=== PATIENT | female | born 1990 | race Caucasian/White ===

== ENCOUNTER 2017-02-14 18:10 | Emergency (ER) | payer MEDICAID ==
[~2017-02-14] VITALS: Ht 162.6 cm; Wt 92.0 kg
[2017-02-14] MEDS ORDERED: IBUPROFEN 600MG TABLET PO ONE (20:30)
[2017-02-14 20:50] VITALS: BP 134/70
== END 2017-02-14 21:36 | disposition home or self-care (01) ==
LOC: ER 18:12
DX: S29.011A Strain of muscle and tendon of front wall of thorax, initial encounter (principal); V43.62XA Car passenger injured in collision with other type car in traffic accident, initial encounter; Y93.89 Activity, other specified; Y92.410 Unspecified street and highway as the place of occurrence of the external cause; Y99.8 Other external cause status
CPT/HCPCS: 81025; 99283

== ENCOUNTER 2017-09-15 22:56 | Emergency (ER) | payer MEDICAID ==
[~2017-09-15] VITALS: Ht 162.6 cm; Wt 87.8 kg
[2017-09-16] MEDS ORDERED: ACETAMINOPHEN 500MG TABLET PO ONE (01:15)
[2017-09-16 02:30] VITALS: BP 111/64
== END 2017-09-16 03:25 | disposition home or self-care (01) ==
LOC: ER 22:56
DX: S40.012A Contusion of left shoulder, initial encounter (principal); S20.02XA Contusion of left breast, initial encounter; V43.62XA Car passenger injured in collision with other type car in traffic accident, initial encounter; Y93.89 Activity, other specified; Y92.488 Other paved roadways as the place of occurrence of the external cause
CPT/HCPCS: 71045; 81025; 99283

== ENCOUNTER 2017-10-31 09:44 | Emergency (ER) | payer MEDICAID ==
[~2017-10-31] VITALS: Ht 162.6 cm; Wt 87.0 kg
[2017-10-31] MEDS ORDERED: SODIUM CHLORIDE 0.9% 1,000 ML IV ONE (11:16)
[2017-10-31] MEDS ORDERED: ACETAMINOPHEN 325MG TABLET PO ONE (13:00)
[2017-10-31 13:03] LABS: BASOPHILS % 0.5 % (0.0-2.0); EOSINOPHILS % 1.8 % (0.0-5.0); HEMATOCRIT. 37.9 % (36.0-48.0); HEMOGLOBIN. 12.5 g/dL (12.0-16.0); LYMPHOCYTES % 22.5 % (20.0-50.0); MEAN CORPUSCULAR HEMOGLOBIN 26.6 pg (28.0-32.0); MEAN CORPUSCULAR VOLUME 80.5 fL (81.0-99.0); MEAN PLATELET VOLUME 9.7 fl (7.4-10.4); MONOCYTES % 7.7 % (2.0-8.0); NEUTROPHILS % 67.5 % (40.0-76.0); PLATELET 216 x1000/uL (130-400); RED BLOOD CELL COUNT 4.71 mill/uL (4.2-5.4); RED CELL DISTRIBUTION WIDTH 16.2 % (11.6-14.6)
[2017-10-31 13:08] LABS: CLARITY URINE CLOUDY (CLEAR); COLOR URINE YELLOW (YELLOW); KETONES URINE NEGATIVE (NEGATIVE); LEUKOCYTE ESTERASE URINE NEGATIVE (NEGATIVE); NITRITE URINE NEGATIVE (NEGATIVE); OCCULT BLOOD URINE TRACE (NEGATIVE); PROTEIN URINE NEGATIVE (NEGATIVE); UROBILINOGEN URINE 0.2 E.U./dL (0.2-1.0)
[2017-10-31 13:09] LABS: CHLORIDE 105 mEq/L (98-107)
[2017-10-31] MEDS ORDERED: ONDANSETRON HCL 4MG/2ML INJ IV ONE (13:15)
[2017-10-31 13:31] LABS: *AMPHETAMINES SCREEN URINE NEGATIVE (NEGATIVE); *BARBITURATES SCREEN URINE NEGATIVE (NEGATIVE); *COCAINE SCREEN URINE NEGATIVE (NEGATIVE)
[2017-10-31 13:32] LABS: *BENZODIAZEPINES SCREEN URINE NEGATIVE (NEGATIVE); METHADONE URINE SCREEN NEGATIVE (NEGATIVE); OPIATES URINE SCREEN NEGATIVE (NEGATIVE); PHENCYCLIDINE URINE SCREEN NEGATIVE (NEGATIVE)
[2017-10-31 13:33] LABS: CANNABINOID URINE SCREEN NEGATIVE (NEGATIVE)
[2017-10-31 13:45] LABS: B-HCG QUANTITATIVE 92677 mIU/mL (<3)
[2017-10-31] MEDS ORDERED: CEFAZOLIN 1000MG PREMIX 50 ML IV ONE (13:45)
[2017-10-31 15:21] VITALS: BP 105/61
== END 2017-10-31 15:23 | disposition home or self-care (01) ==
LOC: ER 09:44
DX: O20.0 Threatened abortion (principal); O23.41 Unspecified infection of urinary tract in pregnancy, first trimester; O21.9 Vomiting of pregnancy, unspecified; O26.891 Other specified pregnancy related conditions, first trimester; Z3A.09 9 weeks gestation of pregnancy; M54.5 Low back pain; E16.2 Hypoglycemia, unspecified; Z98.890 Other specified postprocedural states
CPT/HCPCS: 36415; 76801; 76817; 80048; 80305; 81003; 81025; 84702; 85025; 86850; 86900; 86901; 96361; 96365; 96375; 99285; J0690; J2405; J7030

== ENCOUNTER 2018-04-28 08:51 | Observation (INO) | payer MEDICAID ==
[~2018-04-28] VITALS: Ht 162.6 cm; Wt 104.3 kg
[2018-04-28] MEDS ORDERED: PNV1TABL50 PO (09:54)
[2018-04-28] MEDS ORDERED: MVI, ADULT NO.1 10 ML in LACTATED RINGERS 1,000 ML IV NR ×2 (10:15)
[2018-04-28 11:00] LABS: BASOPHILS % 0.2 % (0.0-2.0); EOSINOPHILS % 0.5 % (0.0-5.0); HEMATOCRIT. 34.1 % (36.0-48.0); HEMOGLOBIN. 11.4 g/dL (12.0-16.0); LYMPHOCYTES % 14.6 % (20.0-50.0); MEAN CORPUSCULAR HEMOGLOBIN 27.5 pg (28.0-32.0); MEAN CORPUSCULAR VOLUME 82.3 fL (81.0-99.0); MONOCYTES % 4.7 % (2.0-8.0); PLATELET 176 x1000/uL (130-400); RED BLOOD CELL COUNT 4.14 mill/uL (4.2-5.4); RED CELL DISTRIBUTION WIDTH 15.5 % (11.6-14.6)
[2018-04-28 13:14] LABS: CHLORIDE 109 mEq/L (98-107)
== END 2018-04-28 14:00 | disposition home or self-care (01) ==
LOC: 8EST 08:51 → 8EST NSY 09:49 → OB TRIAGE 10:05
PROVIDERS: ADMIT Obstetrics & Gynecology; ATTEND Obstetrics & Gynecology
DX: O26.893 Other specified pregnancy related conditions, third trimester (principal); R42 Dizziness and giddiness; Z3A.34 34 weeks gestation of pregnancy
CPT/HCPCS: 36415; 80053; 85025; 96365; 96366; G0378; J3490; J7120; 96361

== ENCOUNTER 2018-10-05 05:12 | Emergency (ER) | payer MEDICAID ==
[~2018-10-05] VITALS: Ht 162.6 cm; Wt 97.0 kg
[~2018-10-05 05:12] MED LIST: PNV1TABL50 PO
[2018-10-05] MEDS ORDERED: ACETAMINOPHEN 500MG TABLET PO ONE (07:15)
[2018-10-05 07:47] VITALS: BP 120/79
== END 2018-10-05 07:47 | disposition home or self-care (01) ==
LOC: ER 05:12
DX: L03.111 Cellulitis of right axilla (principal); Z98.890 Other specified postprocedural states
CPT/HCPCS: 99283

== ENCOUNTER 2019-01-29 23:15 | Emergency (ER) | payer MEDICAID ==
[~2019-01-29] VITALS: Ht 162.6 cm; Wt 95.0 kg
[2019-01-30] MEDS ORDERED: BACITRACIN ZINC OINT UDPKT TOP ONE (01:00)
[2019-01-30] MEDS ORDERED: LIDOCAINE HCL 1% 20ML VIAL (Pyxis) INJ INFIL ONE (01:45)
[2019-01-30 02:54] VITALS: BP 142/80
== END 2019-01-30 02:55 | disposition home or self-care (01) ==
LOC: ER 23:15
DX: L02.411 Cutaneous abscess of right axilla (principal); Z98.890 Other specified postprocedural states
CPT/HCPCS: 10060; 99283; Z7610; 99281